=== PATIENT | male | born 1950 | race Caucasian/White ===

== ENCOUNTER 2019-11-02 11:52 | Outpatient (CLI) | payer MEDICARE, SELFPAY ==
[2019-11-02 13:07] LABS: Prostate Specific Antigen 4.5 ng/mL (< OR = 4.0)
== END 2019-11-02 11:53 | disposition home or self-care (01) ==
PROVIDERS: PCP Internal Medicine; Visit Provider Urology
DX: R97.20 Elevated prostate specific antigen [PSA] (principal)
CPT/HCPCS: 36415; 84153